=== PATIENT | male | born 1940 | race Caucasian/White ===

== ENCOUNTER 2016-04-04 09:43 | Outpatient (CLI) | payer OTHER ==
--- NOTE | 2016-04-04 10:44 | DIAGNOSTIC IMAGING REPORT ---
PROCEDURE: DEXA BONE DENSITY STUDY CLINICAL INDICATION: PREVENTIVE HEATLH CARE COMPARISON: None. FINDINGS: LUMBAR SPINE: Bone mineral density 0.827 g/cm2, T score -2.4 osteopenia LEFT HIP: Bone mineral density 0.745 g/cm2, T score -1.9 osteopenia LEFT FEMORAL NECK: Bone mineral density 0.661 g/cm2, T score -2.0 osteopenia FRACTURE RISK CALCULATION ( when applicable): 10-year fracture risk of a major osteoporotic fracture 17% and of a hip fracture 9.3 % (T score greater or equal to -1.0 to: NORMAL) (T score from -1.1 to -2.4: OSTEOPENIA) (T score ess than or equal to -2.5: OSTEOPOROSIS) IMPRESSION: 1. Osteopenia spine hip and femoral neck with a 10-year fracture risk of 17% and a hip fracture risk of 9.3%
[2016-05-28] MEDS ORDERED: ATENOLOL100 MG PO (10:32)
[2016-05-28] MEDS ORDERED: LISINOPRIL10 MG PO (10:33)
[2016-05-28] MEDS ORDERED: VITAMIN D-31000 UNIT PO (10:33)
[2016-05-28] MEDS ORDERED: VITAMIN C500 M1 PO (10:34)
== END 2016-04-04 23:00 ==
LOC: XR SRH 09:43
DX: M85.89 Other specified disorders of bone density and structure, multiple sites (principal)

== ENCOUNTER 2016-05-10 11:44 | Emergency (ER) | payer OTHER ==
--- NOTE | 2016-05-10 12:25 | DIAGNOSTIC IMAGING REPORT ---
PROCEDURE: XR CHEST 1 VIEW INDICATION: NEAR SYNCOPE TECHNIQUE: Portable AP view 12:14 p.m. COMPARISON: None. FINDINGS: Lungs are clear. Heart and mediastinum are normal. Thorax is normal. IMPRESSION: 1. Negative chest.
--- NOTE | 2016-05-10 13:40 | ED ORDER SUMMARY ---
..... Patient: VESTA NEWMAN OrderSheet [facility] VisitID: [id number] [place] [address] 75y, M Registration Date/Time: 05/10/2016 ORDER SHEET Weight: 83.9 kg (stated) Allergies: None GENERAL ORDERS: Core Stripper (Continuous) (near syncope) (11:56 05/10/2016 Georgie Cleary) (Ack 12:03 JESSEoerner) (12:09 KHoerner) Chest 1V Urgent (11:57 05/10/2016 Georgie Cleary) (Ack 12:03 JESSEoerner) (12:11 KHoerner) CBC w Diff Urgent (11:57 05/10/2016 Georgie Cleary) (Ack 12:03 Moriahrner) (12:09 KHoerner) CMP Urgent (11:05/10/2016 Georgie Cleary) (Ack 12:03 JESSEoerner) (12:09 KHoerner) UA-Culture if indicated Urgent (11:57 05/10/2016 Georgie Cleary) (Ack 12:03 JESSEoerner) (12:36 KKnebel R.N.) PT with INR Urgent (11:57 05/10/2016 Georgie Cleary) (Ack 12:03 JESSEoerner) (12:09 KHoerner) Troponin-I Urgent (11:57 05/10/2016 Georgie Cleary) (Ack 12:03 JESSEoerner) (12:09 KHoerner) BNP Urgent (11:57 05/10/2016 Georgie Cleary) (Ack 12:03 Moriahrner) (12:09 KHoerner) Pulse oximeter (11:57 05/10/2016 Georgie Cleary) (Ack 12:03 JESSEoerner) (12:09 KHoerner) EKG - ER Stat (11:57 05/10/2016 Georgie Cleary) (Ack 12:03 Tessa) (12:06 RKaruga) TSH Urgent (12:34 05/10/2016 Georgie Cleary) (Ack 12:36 KHoerner) (12:37 Tessa) (12:37 Hailey Finch) MEDICATION ORDERS: IV FLUIDS: ORDER SHEET NOTES: [Electronically signed by Juli Geiger R.N. (14:05/10/2016)] [Electronically signed by Osmani Shea Dr. (10:19 05/15/2016)] [Electronically locked/signed by Juli Geiger R.N. (14:05/10/2016)]
--- NOTE | 2016-05-10 13:40 | ED NURSING NOTES ---
Clinical Report - Nurses [facility] [address] [place] [address] 05/10/2016 11:44 Patient: VESTA NEWMAN TRIAGE Triage time 12:May 10 2016. Acuity: LEVEL 3. Chief Complaint: WEAKNESS. Alert. No acute distress. PIA COMA SCORE: [place] Coma Scale: 15- eyes open spontaneously (4); best verbal response- oriented x 4 (5); best motor response- obeys commands (6). --12:04 Juli Geiger R.N. 12:00 05/10/16. BP: 172/84. HR: 59. RR: 12. O2 saturation: 99%. Temp: 97.8 F. Pain level now: 0/10. --12:04 Juli Geiger R.N. <<STRICKEN ENTRY-- 12:24 05/10/16. BP: 152/81. HR: 83. RR: 17. O2 saturation: 100%. --12:25 Juli Geiger R.N. --END STRIKE>> Correction. --12:26 Juli Geiger R.N. 12:26 05/10/16. BP: 152/81. HR: 83. RR: 16. O2 saturation: 100%. --12:33 Juli Geiger R.N. Weight: 83.9 kg stated. Height/Length: 72 inches Per Patient. BMI: 25.1. --12:06 Juli Geiger R.N. Medications Atenolol Oral (Tablet 100 mg) 1 tablet, daily. --12:07 Juli Geiger R.N. Lisinopril Oral (Tablet 40 mg) 1 tablet, daily. --12:08 Juli Geiger R.N. DiphenhydrAMINE HCl Oral (Capsule 25 mg) 2 capsules, at bedtime. --12:08 Knebel, Juli, R.N. Vitamin D Oral (Capsule 1000 unit) 1 capsule, daily. --12:08 Juli Geiger R.N. Calcium 500 Oral 2 tabs, daily. --12:09 Juli Geiger R.N. TraZODone HCl Oral (Tablet 50 mg) 6 tabs, at bedtime. --12:10 Juli Geiger R.N. Allergies None. --12:02 Juli Geiger R.N. History Arrived by private vehicle. Historian: patient. Onset. (about 2 months). He has had a cough. 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 PAST MEDICAL HX: Immunizations: up-to-date. SOCIAL HX: Current every day heavy tobacco smoker (cigarette)- 1 pack per day. Alcohol use; consumes three beers a day. No drug use. No infectious disease exposure. SELF HARM ASSESSMENT: A self harm assessment was performed. The patient answered "no" to the question "Do you have thoughts of harming or killing yourself?". NUTRITIONAL RISK ASSESSMENT: The nutritional risk assessment revealed no deficiencies. FUNCTIONAL ASSESSMENT: Functional assessment: no impairments noted. LEARNING NEEDS ASSESSMENT: The learning needs assessment revealed no barriers. ABUSE ASSESSMENT: Abuse assessment: The patient was asked "Do you feel safe in your home?". FALL RISK ASSESSMENT: Fall risk assessment completed. Risk factors identified include patient age greater than 65 years and impairment of mobility. SKIN INTEGRITY ASSESSMENT: Skin integrity risk assessment completed. No skin integrity risk identified. --12:04 Juli Geiger R.N. PROBLEMS: Hypertension. --12:02 Juli Geiger R.N. Insomnia. Osteopenia. Hyperkalemia. --12:11 Juli Geiger R.N. ADDITIONAL SURGERIES: Appendectomy. Nasal surgery. --12:02 Juli Geiger R.N. Interventions ID band on patient. To room. --12:04 Juli Geiger R.N. PHYSICAL ASSESSMENT To room via wheelchair. GENERAL / NEURO / PSYCH: Alert. Appears in no acute distress. HEENT: Mucous membranes are pink. RESPIRATORY: Respirations not labored. CVS: Capillary refill less than 2 seconds. GI / : Abdomen nontender. SKIN: Skin is warm and dry. --12:05 Juli Geiger R.N. NURSING PROGRESS NOTES residential monitor, pulse oximeter and NIBP monitor placed on patient; cardiac cath technician- Lead II; monitor alarms on. Head of bed elevated. Two patient identifiers checked. Call light placed in reach. Side rails up x 2. Bed placed in lowest position. Brakes of bed on. Patient ready for evaluation- chart flagged. --12:06 Juli Geiger R.N. 12:07 05/10/2016 Site #1 started via IV in the right upper arm with an 20g angiocath, with aseptic technique and good blood return; one attempt. Blood drawn: rainbow set. Labeled in the presence of the patient and sent to the lab. Saline lock flushed with 10 mL saline. --12:07 Juli Geiger R.N. EKG time: (12:01 PM). EKG was performed by a tech and shown to the ED physician. --12:19 [facility] Patient ID band checked for patient name and birthdate: patient confirmed. Clean catch urine collected with return of yellow-colored clear urine; sample sent to lab for urinalysis. Specimen labeled in the presence of the patient. --12:34 Juli Geiger R.N. 13:30 05/10/16. BP: 162/77. HR: 54. RR: 16. O2 saturation: 99%. --14:12 Juli Geiger R.N. 13:03 05/10/16. BP: 145/68. HR: 55. RR: 16. O2 saturation: 99%. --14:13 Juli Geiger R.N. DISPOSITION / DISCHARGE Departure time: 1329May 10 2016. Condition at departure: improved. No learning barriers present. Discharge instructions provided and reviewed with the patient. Reviewed medication(s) side effects and precautions information. Reviewed referral to a primary care physician. Verbalized understanding. Written instructions provided in Armenian. The patient was discharged home. He left the Emergency Department ambulatory and via taxi. --14:18 Juli Geiger R.N. 14:16 05/10/16. BP: 162/77. HR: 54. RR: 16. O2 saturation: 99%. Pain level now: 0/10. --14:18 Juli Geiger R.N. Locked/Released at 05/10/2016 14:19 by Juli Geiger R.N.
--- NOTE | 2016-05-10 13:40 | ED CLINICAL REPORT ---
Clinical Report - Physicians/Mid Levels [facility] [address] [place] [address] 05/10/2016 11:44 Patient: VESTA NEWMAN Time Seen: 1150; initial patient contact. Arrived- By private vehicle. Historian- patient. HISTORY OF PRESENT ILLNESS Chief Complaint: generalized weakness. This started past Several months and is still present (staying the same). It was abrupt in onset and has been waxing/waning but is not gone now. At its maximum, severity described as moderate. When seen in the E.D., severity described as moderate. The patient has had fatigue and weakness. (cough for the past month or two. recently started taking trazodone and Benadryl for sleep aids. Patient reports his symptoms occurringaround that time.). Similar symptoms previously: Many times. Recent medical care: The patient was seen recently in a clinic. REVIEW OF SYSTEMS No fever or abdominal pain. All systems otherwise negative, except as recorded above. PAST HISTORY See nurses notes. Medications: TraZODone HCl Oral (Tablet 50 mg) 6 tabs, at bedtime. Calcium 500 Oral 2 tabs, daily. Vitamin D Oral (Capsule 1000 unit) 1 capsule, daily. DiphenhydrAMINE HCl Oral (Capsule 25 mg) 2 capsules, at bedtime. Lisinopril Oral (Tablet 40 mg) 1 tablet, daily. Atenolol Oral (Tablet 100 mg) 1 tablet, daily. Allergies: None. SOCIAL HISTORY Never smoker. No alcohol use or drug use. No recent travel. Is a local resident. ADDITIONAL NOTES The nursing notes have been reviewed. PHYSICAL EXAM Vital Signs: 05/10/2016 12:00 BP: 172/84. HR: 59. RR: 12. O2 saturation: 99%. Temp: 97.8 F. Pain level now: 0/10. Blood pressure normal. Oxygen saturation normal. Appearance: Alert. No acute distress. (nontoxic appearance). Eyes: Pupils equal, round and reactive to light. Eyes normal inspection. ENT: Ears normal. Nose normal. Pharynx normal. Neck: Normal inspection. Neck supple. CVS: Normal heart rate and rhythm. Heart sounds normal. Pulses normal. Respiratory: No respiratory distress. Breath sounds normal. Chest nontender. Abdomen: No visible injury. Soft and nontender. Bowel sounds normal. Back: Normal inspection. Skin: Skin warm and dry. Normal skin color. No rash. Normal skin turgor. Extremities: Extremities exhibit normal ROM. No lower extremity edema. LABS, X-RAYS, AND EKG EKG: No acute ischemia. Narrow-complex bradycardia (58). Sinus bradycardia. Normal P waves. Normal CELIA. Normal QRS complex. Normal axis. Normal ST and T waves, QT and QTc. The study has been interpreted contemporaneously. The study has been independently viewed by me. The EKG appears to be a good tracing. Chest X-ray: (PROCEDURE: XR CHEST 1 VIEW INDICATION: NEAR SYNCOPE TECHNIQUE: Portable AP view 12:14 p.m. COMPARISON: None. FINDINGS: Lungs are clear. Heart and mediastinum are normal. Thorax is normal. IMPRESSION: 1. Negative chest.). Laboratory Tests: UA-Culture if indicated: (LIZANDRO: 05/10/2016 12:30) ( [facility] [place] 12:48) Final results Test Result Flag Units (Reference) URINE COLOR YELLOW URINE APPEARANCE CLEAR URINE GLUCOSE NEGATIVE (NEGATIVE) URINE BILIRUBIN NEGATIVE (NEGATIVE) URINE KETONE NEGATIVE (NEGATIVE) URINE SPECIFIC GRAVITY 1.020 (1.010-1.030) URINE PH 6.5 (5.0-8.0) URINE PROTEIN NEGATIVE (NEGATIVE) URINE UROBILINOGEN 0.2 EU/dL (0.2-1.0) URINE NITRITE NEGATIVE (NEGATIVE) URINE BLOOD NEGATIVE (NEGATIVE) URINE LEUK ESTERASE NEGATIVE (NEGATIVE) URINE RBC NONE SEEN rbc/hpf (0-1) URINE WBC NONE SEEN wbc/hpf (0-1) URINE EPITHELIAL CELLS 1-3 EPI/hpf (0-5) URINE BACTERIA TRACE (<1+) (NONE SEEN) URINE COMMENT CULT NOT INDICATED 1+ AMORPHOUSURINE CULTURES ARE SET-UP BASED ON THE FOLLOWING CRITERIA:POSITIVE NITRITEPOSITIVE LEUKOCYTE ESTERASEGREATER THAN 10 WHITE BLOOD CELLSMODERATE (2+) OR GREATER BACTERIA CBC w Diff: (LIZANDRO: 05/10/2016 12:07) ( [facility] 05/10/2016 12:17) Final results Test Result Flag Units (Reference) WHITE BLOOD COUNT 7.0 K/uL (4.5-11.5) RED BLOOD COUNT 3.98 L M/uL (4.50-5.90) HEMOGLOBIN 13.8 gm/dL (13.5-17.5) HEMATOCRIT 41.3 % (41.0-53.0) MEAN CELL VOLUME 104 H fL (80-100) MEAN CORPUSCULAR HGB 35 H pg (26-34) MEAN CORPUSCULAR HGB CONC 33 g/dL (31-37) RED CELL DISTRIBUTION WIDTH 13.5 % (11.6-14.8) PLATELET COUNT 233 K/uL (150-400) NEUTROPHIL % 53.1 % (50-75) LYMPH % 33.7 % (25-40) MONO % 11.3 % (3-14) EOSINOPHIL % 1.6 % (0-4) BASOPHIL % 0.3 % (0-2) PT with INR: (LIZANDRO: 05/10/2016 12:07) ( [facility] 05/10/2016 12:24) Final results Test Result Flag Units (Reference) INR 1.0 (0.8-1.2) Low Intensity Therapy: INR 1.5-2.0 PT range 18.5-23.1Mod.Intensity Therapy: INR 2.0-3.0 PT range 23.1-31.5High Intensity Therapy: INR 2.5-3.5 PT range 27.4-35.5High Intensity Therapy 2: INR 3.0-4.0 PT range 31.5-39.3 BNP: (LIZANDRO: 05/10/2016 12:07) ( [facility] [place]/10/2016 12:39) Final results Test Result Flag Units (Reference) B-TYPE NATRIURETIC PEPTIDE 86.1 pg/ml (5-100) CMP: (LIZANDRO: 05/10/2016 12:07) ( [facility] [place] 05/10/[place] 13:31) Final results Test Result Flag Units (Reference) GLUCOSE 93 mg/dL (70-110) BUN 17 mg/dL (7-18) CREATININE 0.7 mg/dL (0.6-1.3) Estimated GFR >60 mL/min Estimated GFR- >60 mL/min Note: Persistent reduction over 3 months in eGFR<60 mL/min/1.73 m2 defines CKD. Patients with eGFR values>=60 mL/min/1.73 m2 may also have CKD if evidence ofpersistent proteinuria. Additional information may be foundat www.kidney.org. SODIUM 138 mmol/L (136-145) POTASSIUM 4.5 mmol/L (3.5-5.1) CHLORIDE 102 mmol/L (98-107) CARBON DIOXIDE 30 mmol/L (21-32) CALCIUM 9.7 mg/dL (8.5-10.1) TOTAL PROTEIN 7.5 g/dL (6.4-8.2) ALBUMIN 4.1 g/dL (3.3-5.0) BILIRUBIN, TOTAL 0.4 mg/dL (0.0-1.0) ALKALINE PHOSPHATASE 69 U/L (46-116) AST (SGOT) 16 U/L (15-37) ALT (SGPT) 16 U/L (12-78) TROPONIN I 0.05 ng/mL (0.00-1.5) TROPONIN REFERENCE RANGE:<0.1 NEGATIVE0.1-1.5 INDETERMINANT>1.5 POSITIVE THYROID STIMULATING HORMONE 1.912 uIU/mL (0.30-3.74) . PROGRESS AND PROCEDURES Course of Care: the patient is a pleasant 75-year-old male with past medical history significant for hypertension presentingeakness. There is some concern for potential syncopal event. Patient will be evaluated with the [facility] role. Patient is currently resting i Patient is agreeable to treatment plan. We'll be looking for potential infectious etiologies or metabolic problems to explain the patient's Near syncopal event. the patient's EKG as well as chest x-ray and laboratory studies including urinalysis do not show any acute abnormalities. Patient is resting in bed in no acute distress. Troponin and BNP are noted to be normal. Patient's thyroid levels are also noted to be normal as well. Because the patient's unremarkable workup here in the emergency department as well as his overall well appearance, do not feel patient needs to be admitted to the hospital require further emergency department workup/evaluation. symptoms are likely due to medications being taken. Particularly trazodone. Recommended patient to speak with his doctor in regards to the trazodone and Benadryl being prescribed. At this time recommended extreme caution with using these medications. patient reports that he will not take any these medications in the past. Patient reports remembering one day when he did not take these medications and felt totally fine. Had long discussion patient in regards to medications and need for appropriate follow-up. Discussed the patient is workup here in the emergency department including diagnosis, home care, follow-up, and return precautions. All questions have been answered. The patient expressed understanding of these instructions and was agreeable to them. Disposition: Discharged. Condition: good. CLINICAL IMPRESSION 05/10/2016 12:00 BP: 172/84. HR: 59. RR: 12. O2 saturation: 99%. Temp: 97.8 F. Pain level now: 0/10. Blood pressure normal. Oxygen saturation normal. Sinus bradycardia (acute). INSTRUCTIONS (Please check on the prescriptions for benadryl and trazadone with your doctor. Those medications can make you sleepy and weak. Your heart rate was also a little slow while in the emergency department and could be caused by the atenolol. Please discuss with your doctor about this medication.). Warnings: GENERAL WARNINGS: Return or contact your physician immediately if your condition worsens or changes unexpectedly, if not improving as expected, or if other problems arise. Specifically return if pain, vomiting, bleeding, breathing difficulty or fever. Your Current Medications: CONTINUE TAKING THE FOLLOWING MEDICATIONS: Calcium 500 Oral : 2 tabs daily. CONTINUE TAKING THE FOLLOWING MEDICATIONS UNTIL YOU CHECK WITH YOUR PHYSICIAN: Atenolol Oral : Tablet 100 mg, 1 tablet daily. DiphenhydrAMINE HCl Oral : Capsule 25 mg, 2 capsules at bedtime. TraZODone HCl Oral : Tablet 50 mg, 6 tabs at bedtime. Follow-up: Return to the emergency department as needed. Follow up with your doctor in two days. Reason for referral: recheck today's concerns. Summary of care provided to patient via paper. Screening today revealed the patient's blood pressure to be in the normal range. The patient should follow up with a primary care provider for blood pressure management. Understanding of the discharge instructions verbalized by patient. (Electronically signed by Osmani Shea Dr. 05/15/2016 10:19)
--- NOTE | 2016-05-10 13:40 | ED NURSING NOTES ---
Clinical Report - Nurses [facility] [address] [place] [address] 05/10/2016 11:44 Patient: VESTA NEWMAN TRIAGE Triage time 12:May 10 2016. Acuity: LEVEL 3. Chief Complaint: WEAKNESS. Alert. No acute distress. PIA COMA SCORE: [place] Coma Scale: 15- eyes open spontaneously (4); best verbal response- oriented x 4 (5); best motor response- obeys commands (6). --12:04 Juli Geiger R.N. 12:00 05/10/16. BP: 172/84. HR: 59. RR: 12. O2 saturation: 99%. Temp: 97.8 F. Pain level now: 0/10. --12:04 Juli Geiger R.N. <<STRICKEN ENTRY-- 12:24 05/10/16. BP: 152/81. HR: 83. RR: 17. O2 saturation: 100%. --12:25 Juli Geiger R.N. --END STRIKE>> Correction. --12:26 Juli Geiger R.N. 12:26 05/10/16. BP: 152/81. HR: 83. RR: 16. O2 saturation: 100%. --12:33 Juli Geiger R.N. Weight: 83.9 kg stated. Height/Length: 72 inches Per Patient. BMI: 25.1. --12:06 Juli Geiger R.N. Medications Atenolol Oral (Tablet 100 mg) 1 tablet, daily. --12:07 Juli Geiger R.N. Lisinopril Oral (Tablet 40 mg) 1 tablet, daily. --12:08 Juli Geiger R.N. DiphenhydrAMINE HCl Oral (Capsule 25 mg) 2 capsules, at bedtime. --12:08 Knebel, Juli, R.N. Vitamin D Oral (Capsule 1000 unit) 1 capsule, daily. --12:08 Juli Geiger R.N. Calcium 500 Oral 2 tabs, daily. --12:09 Juli Geiger R.N. TraZODone HCl Oral (Tablet 50 mg) 6 tabs, at bedtime. --12:10 Juli Geiger R.N. Allergies None. --12:02 Juli Geiger R.N. History Arrived by private vehicle. Historian: patient. Onset. (about 2 months). He has had a cough. 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 PAST MEDICAL HX: Immunizations: up-to-date. SOCIAL HX: Current every day heavy tobacco smoker (cigarette)- 1 pack per day. Alcohol use; consumes three beers a day. No drug use. No infectious disease exposure. SELF HARM ASSESSMENT: A self harm assessment was performed. The patient answered "no" to the question "Do you have thoughts of harming or killing yourself?". NUTRITIONAL RISK ASSESSMENT: The nutritional risk assessment revealed no deficiencies. FUNCTIONAL ASSESSMENT: Functional assessment: no impairments noted. LEARNING NEEDS ASSESSMENT: The learning needs assessment revealed no barriers. ABUSE ASSESSMENT: Abuse assessment: The patient was asked "Do you feel safe in your home?". FALL RISK ASSESSMENT: Fall risk assessment completed. Risk factors identified include patient age greater than 65 years and impairment of mobility. SKIN INTEGRITY ASSESSMENT: Skin integrity risk assessment completed. No skin integrity risk identified. --12:04 Juli Geiger R.N. PROBLEMS: Hypertension. --12:02 Juli Geiger R.N. Insomnia. Osteopenia. Hyperkalemia. --12:11 Juli Geiger R.N. ADDITIONAL SURGERIES: Appendectomy. Nasal surgery. --12:02 Juli Geiger R.N. Interventions ID band on patient. To room. --12:04 Juli Geiger R.N. PHYSICAL ASSESSMENT To room via wheelchair. GENERAL / NEURO / PSYCH: Alert. Appears in no acute distress. HEENT: Mucous membranes are pink. RESPIRATORY: Respirations not labored. CVS: Capillary refill less than 2 seconds. GI / : Abdomen nontender. SKIN: Skin is warm and dry. --12:05 Juli Geiger R.N. NURSING PROGRESS NOTES shelter monitor, pulse oximeter and NIBP monitor placed on patient; radiation monitor- Lead II; monitor alarms on. Head of bed elevated. Two patient identifiers checked. Call light placed in reach. Side rails up x 2. Bed placed in lowest position. Brakes of bed on. Patient ready for evaluation- chart flagged. --12:06 Juli Geiger R.N. 12:07 05/10/2016 Site #1 started via IV in the right upper arm with an 20g angiocath, with aseptic technique and good blood return; one attempt. Blood drawn: rainbow set. Labeled in the presence of the patient and sent to the lab. Saline lock flushed with 10 mL saline. --12:07 Juli Geiger R.N. EKG time: (12:01 PM). EKG was performed by a tech and shown to the ED physician. --12:19 [facility] Patient ID band checked for patient name and birthdate: patient confirmed. Clean catch urine collected with return of yellow-colored clear urine; sample sent to lab for urinalysis. Specimen labeled in the presence of the patient. --12:34 Juli Geiger R.N. 13:30 05/10/16. BP: 162/77. HR: 54. RR: 16. O2 saturation: 99%. --14:12 Juli Geiger R.N. 13:03 05/10/16. BP: 145/68. HR: 55. RR: 16. O2 saturation: 99%. --14:13 Juli Geiger R.N. DISPOSITION / DISCHARGE Departure time: 1329May 10 2016. Condition at departure: improved. No learning barriers present. Discharge instructions provided and reviewed with the patient. Reviewed medication(s) side effects and precautions information. Reviewed referral to a primary care physician. Verbalized understanding. Written instructions provided in French. The patient was discharged home. He left the Emergency Department ambulatory and via taxi. --14:18 Juli Geiegr R.N. 14:16 05/10/16. BP: 162/77. HR: 54. RR: 16. O2 saturation: 99%. Pain level now: 0/10. --14:18 Juli Geiger R.N. Locked/Released at 05/10/2016 14:19 by Juli Geiger R.N.
--- NOTE | 2016-05-10 13:40 | ED ORDER SUMMARY ---
..... 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) (near syncope) (11:56 05/10/2016 Georgie Cleary) (Ack 12:03 JESSEoerner) (12:09 KHoerner) Chest 1V Urgent (11:57 05/10/2016 Georgie Cleary) (Ack 12:03 JESSEoerner) (12:11 KHoerner) CBC w Diff Urgent (11:57 05/10/2016 Georgie Cleary) (Ack 12:03 Moriahrner) (12:09 KHoerner) CMP Urgent (11:05/10/2016 Georgie Cleary) (Ack 12:03 JESSEoerner) (12:09 KHoerner) UA-Culture if indicated Urgent (11:57 05/10/2016 Georgie Cleary) (Ack 12:03 JESSEoerner) (12:36 KKnebel R.N.) PT with INR Urgent (11:57 05/10/2016 Georgie Cleary) (Ack 12:03 JESSEoerner) (12:09 KHoerner) Troponin-I Urgent (11:57 05/10/2016 Georgie Cleary) (Ack 12:03 JESSEoerner) (12:09 KHoerner) BNP Urgent (11:57 05/10/2016 Georgie Cleary) (Ack 12:03 Moriahrner) (12:09 KHoerner) Pulse oximeter (11:57 05/10/2016 Georgie Cleary) (Ack 12:03 JESSEoerner) (12:09 KHoerner) EKG - ER Stat (11:57 05/10/2016 Georgie Cleary) (Ack 12:03 Tessa) (12:06 RKaruga) TSH Urgent (12:34 05/10/2016 Georgie Cleary) (Ack 12:36 KHoerner) (12:37 Tessa) (12:37 Hailey Finch) MEDICATION ORDERS: IV FLUIDS: ORDER SHEET NOTES: [Electronically signed by Juli Geiger R.N. (14:05/10/2016)] [Electronically signed by Osmani Shea Dr. (10:19 05/15/2016)] [Electronically locked/signed by Juli Geiger R.N. (14:05/10/2016)]
--- NOTE | 2016-05-15 10:19 | ED MAR SUMMARY ---
..... Medication Administration Record [facility] [address] [place], [place] [id number] Patient: VESTA NEWMAN Visit ID: [id number] 75y, M Weight: 83.9 kg Height/Length: 72 in BMI: 25.1 ALLERGIES: None
--- NOTE | 2016-05-15 10:19 | ED MED RECONCILIATION SUMMARY ---
Patient: VESTA NEWMAN Medication Reconciliation Report [facility] VisitID: [id number] [address] [place] [address] 75y, M Registration Date/Time: 05/10/2016 Weight: 83.9 kg Height/Length: 72 in. BMI: 25.1 ALLERGIES: None The patient's Home Medications are listed below: CONTINUE TAKING THE FOLLOWING MEDICATIONS: Calcium 500 Oral 2 tabs, daily CONTINUE TAKING THE FOLLOWING MEDICATIONS UNTIL YOU CHECK WITH YOUR PHYSICIAN: Atenolol Oral (100 mg) 1 tablet, daily DiphenhydrAMINE HCl Oral (25 mg) 2 capsules, at bedtime TraZODone HCl Oral (50 mg) 6 tabs, at bedtime THE FOLLOWING MEDICATIONS NEED TO BE RECONCILED: Lisinopril Oral (40 mg) 1 tablet, daily Vitamin D Oral (1000 unit) 1 capsule, daily The source(s) of the original Home Medication information: Not obtained. The following Medications were given to the patient in the Emergency Department: None. The following Medications were prescribed to the patient: None.
--- NOTE | 2016-05-15 10:19 | ED MAR SUMMARY ---
..... Medication Administration Record [facility] [address], [place] [id number] Patient: VESTA NEWMAN Visit ID: [id number] 75y, M Weight: 83.9 kg Height/Length: 72 in BMI: 25.1 ALLERGIES: None
--- NOTE | 2016-05-15 10:19 | ED MED RECONCILIATION SUMMARY ---
Patient: VESTA NEWMAN Medication Reconciliation Report [facility] VisitID: [id number] [address] [place] [address] 75y, M Registration Date/Time: 05/10/2016 Weight: 83.9 kg Height/Length: 72 in. BMI: 25.1 ALLERGIES: None The patient's Home Medications are listed below: CONTINUE TAKING THE FOLLOWING MEDICATIONS: Calcium 500 Oral 2 tabs, daily CONTINUE TAKING THE FOLLOWING MEDICATIONS UNTIL YOU CHECK WITH YOUR PHYSICIAN: Atenolol Oral (100 mg) 1 tablet, daily DiphenhydrAMINE HCl Oral (25 mg) 2 capsules, at bedtime TraZODone HCl Oral (50 mg) 6 tabs, at bedtime THE FOLLOWING MEDICATIONS NEED TO BE RECONCILED: Lisinopril Oral (40 mg) 1 tablet, daily Vitamin D Oral (1000 unit) 1 capsule, daily The source(s) of the original Home Medication information: Not obtained. The following Medications were given to the patient in the Emergency Department: None. The following Medications were prescribed to the patient: None.
--- NOTE | 2016-05-15 10:19 | ED DISCHARGE INSTRUCTIONS ---
Patient: VESTA NEWMAN General Instructions Located Within [facility] VisitID: [id number] [place] [address] 75y, M Registration Date/Time: 05/10/2016 05/10/2016 12:00 BP: 172/84. HR: 59. RR: 12. O2 saturation: 99%. Temp: 97.8 F. Pain level now: 0/10. Blood pressure normal. Oxygen saturation normal. Sinus bradycardia (acute). INSTRUCTIONS (Please check on the prescriptions for benadryl and trazadone with your doctor. Those medications can make you sleepy and weak. Your heart rate was also a little slow while in the emergency department and could be caused by the atenolol. Please discuss with your doctor about this medication.). Warnings: GENERAL WARNINGS: Return or contact your physician immediately if your condition worsens or changes unexpectedly, if not improving as expected, or if other problems arise. Specifically return if pain, vomiting, bleeding, breathing difficulty or fever. Your Current Medications: CONTINUE TAKING THE FOLLOWING MEDICATIONS: Calcium 500 Oral : 2 tabs daily. CONTINUE TAKING THE FOLLOWING MEDICATIONS UNTIL YOU CHECK WITH YOUR PHYSICIAN: Atenolol Oral : Tablet 100 mg, 1 tablet daily. DiphenhydrAMINE HCl Oral : Capsule 25 mg, 2 capsules at bedtime. TraZODone HCl Oral : Tablet 50 mg, 6 tabs at bedtime. Follow-up: Return to the emergency department as needed. Follow up with your doctor in two days. Reason for referral: recheck today's concerns. Summary of care provided to patient via paper. Screening today revealed the patient's blood pressure to be in the normal range. The patient should follow up with a primary care provider for blood pressure management. Understanding of the discharge instructions verbalized by patient. ADDITIONAL INFORMATION Bradycardia Bradycardia is a condition where the heart beats at a slow rate (less than 60 beats per minute). Bradycardia may occur in persons with heart disease, but can also occur in healthy persons. Symptoms include: dizziness, weakness, shortness of breath, chest pain, and fainting. Bradycardia that is causing symptoms can be treated with medicines or a pacemaker, depending on the cause.Bradycardia that is not causing symptoms may be evaluated further by your own doctor in the office. [id number] Causes: Side effect of certain medicines (such as beta-blockers, calcium channel blockers, digitalis, amiodarone, clonidine, lithium) Medical conditions such as hypoglycemia (low blood sugar), hypothyroidism (low thyroid), electrolyte disorder, sleep apnea Athletes, especially long-distance runners, may have a slow heart rate. This can be normal. Heart-Related Causes: Coronary artery disease (angina or prior heart attack, also known as acute myocardial infarction, or AMI) Disease of the heart valves Congestive heart failure Sick sinus syndrome Sometimes the cause for the arrhythmia cannot be found. Home Care: Resume your usual activities when you are feeling back to normal. If you develop any of the symptoms below during exertion, then you should not exert yourself until evaluated further by your doctor. Follow Up with your doctor or as advised by our staff. Get Prompt Medical Attention if any of the following occur: Weakness, dizziness, lightheadedness, or fainting Chest, shoulder, arm, neck, or backpain Shortness of breath Slow heart rate (under 50 beats per minute, at rest) Palpitations (the sense that your heart is fluttering or beating fast or hard or irregular) Difficulty with speech or vision, weakness of an arm or leg Swelling of the ankles You have been given the following additional information: Bradycardia (Electronically signed by Osmani Shea Dr. 05/15/2016 10:19)
[2016-05-28] MEDS ORDERED: ATENOLOL100 MG PO (10:32)
[2016-05-28] MEDS ORDERED: VITAMIN D-31000 UNIT PO (10:33)
[2016-05-28] MEDS ORDERED: LISINOPRIL10 MG PO (10:33)
[2016-05-28] MEDS ORDERED: VITAMIN C500 M1 PO (10:34)
== END 2016-05-10 14:18 | disposition home or self-care (01) ==
LOC: ED SRH 11:44
DX: R00.1 Bradycardia, unspecified (principal); Z79.899 Other long term (current) drug therapy
CPT/HCPCS: 90004; 90100; 90616; 91320; 93140; 94060; 95059